=== PATIENT | male | born 1995 | race Caucasian/White ===

== ENCOUNTER 2025-05-30 01:05 | Emergency (ER) | payer SELFPAY ==
[~2025-05-30] VITALS: Ht 185.4 cm; Wt 92.7 kg
[2025-05-30 01:22] LABS: MEAN PLATELET VOLUME 8.0 FL (7.4-10.4); RED CELL DISTRIBUTION WIDTH 13.8 % (11.5-14.5)
[2025-05-30 01:42] LABS: CREATININE 1.16 MG/DL (0.60-1.10); PRO BRAIN NATRIURETIC PEPTIDE < 30 PG/ML (0-125); TOTAL CARBON DIOXIDE 23.5 MMOL/L (24-32); eCRCL 107 ML/MIN; eGFR 75 ML/MIN
--- NOTE | 2025-05-30 02:31 | RADIOLOGY REPORT ---
CHEST RADIOGRAPH Indication: CP Technique: Single frontal view of the chest was obtained COMPARISON: None FINDINGS: Lines and Tubes: None Lungs: Clear Pleura: No effusion. No pneumothorax. Cardiomediastinal contours: Unremarkable Bones: Unremarkable IMPRESSION: 1. No acute disease.
--- NOTE | 2025-05-30 02:52 | Physician Documentation ---
History of Present Illness ~ Chief Complaint: Chest Pain Stated Complaint: CHEST PAIN Time Seen by MD: 02:48 HPI Patient presents to the emergency room for evaluation of chest pain. Patient states that he noticed it when he was driving home from work. He is normally very active and runs and water skis. Pain is exacerbated with deep breaths and movements. He does not smoke, does not have first-degree relatives with heart disease and denies history of blood pressure cholesterol or diabetes. Medication Reconciliation Allergies: Coded Allergies: No Known Allergies (Unverified , 05/30/25) Review of Systems ROS All review of systems negative except as per HPI Physical Exam Vital Signs: Temperature: 97.1, Source: Temporal, Heart Rate: 68, Respiratory Rate: 12, BP: 101/65, Pulse Oximetry: 98, Weight: 92.730 Oxygen Flow Rate: 0 Physical Exam General: Patient is awake, alert, oriented x4 in no acute distress Head: Normocephalic and atraumatic. Eyes: Conjunctival normal. EOMI. PERRL. ENT: Mucous membranes moist. Neck: Supple, trachea is midline. Chest: Clear to auscultation bilaterally without rales, rhonchi, or wheezes. There is no accessory muscle use or retractions. Tenderness to palpation to precordium Cardiac: RRR without murmurs, gallops, or rubs. Extremities: Normal strength. Normal range of motion. No deformities or edema. No calf tenderness to palpation Progress Results/Orders Results/Orders Orders - ELDER JAMES MD Chest,Single View (05/30/25 01:18) Monitor (05/30/25 01:11) Saline Lock (05/30/25 01:11) Oxygen (05/30/25 01:11) Electrocardiogram (05/30/25 01:11) Hs Troponin I W Calculations (05/30/25 03:11) Hs Troponin I W Calculations (05/30/25 04:11) Completed Orders - ELDER JAMES MD Chest,Single View (05/30/25 01:18) Cbc/Diff (05/30/25 01:11) BMP (05/30/25 01:11) PBNP (05/30/25 01:11) Hs Troponin I W Calculations (05/30/25 01:11) Vital Signs 05/30/25 05/30/25 05/30/25 8/30/25 01:07 01:53 02:53 02:56 Temp 97.1 Pulse 67 68 78 Resp 16 12 16 18 B/P (MAP) 114/71 101/65 (77) 102/60 (74) Pulse Ox 100 98 99 O2 Flow Rate 0 Laboratory Tests Test 05/30/25 01:12 White Blood Count 9.0 Red Blood Count 4.70 Hemoglobin 14.8 Hematocrit 43.4 Mean Corpuscular Volume 92.2 Mean Corpuscular Hemoglobin 31.6 H Mean Corpuscular Hemoglobin Concent 34.2 Red Cell Distribution Width 13.8 Platelet Count 193 Mean Platelet Volume 8.0 Neutrophils (%) (Auto) 63.3 Lymphocytes (%) (Auto) 26.7 Monocytes (%) (Auto) 8.4 Eosinophils (%) (Auto) 1.0 Basophils (%) (Auto) 0.6 Neutrophils # (Auto) 5.7 Lymphocytes # (Auto) 2.4 Monocytes # (Auto) 0.8 Eosinophils # (Auto) 0.1 Basophils # (Auto) 0.1 CBC Comment Sodium Level 140 Potassium Level 3.8 Chloride Level 105 Carbon Dioxide Level 23.5 L Anion Gap 12 Blood Urea Nitrogen 11 Creatinine 1.16 H Estimated GFR/1.73 m2 75 BUN/Creatinine Ratio 9.5 L Glucose Level 118 H Calcium Level 8.7 Troponin I High Sensitivity 8 Pro-B-Type Natriuretic Peptide < 30 Albumin 4.0 Chemistry Comments EKG/XRAY/CT/US/VASC/MRI EKG : Additional Comment EKG interpreted by myself shows time of 0111, rate 69, sinus rhythm, normal axis, nonspecific ST-T changes Medical Decision Making Findings Patient presents to the emergency room for evaluation of chest pain as per HPI. Differentials include but are not limited to ACS, pulmonary embolism, musculoskeletal pain, aortic pathology therefore emergent labs and chest x-ray ordered. Chest x-ray reassuring as are labs. He had not feel patient requires a 2nd troponin given time of onset of eye p.m. yesterday. The fact that patient is able to move and palpate his precordium is very reassuring and I suspect musculoskeletal pain. EKG shows possibility of pericarditis however chest x-ray is reassuring and no elevation of troponins. Departure Disposition: HOME / SELF CARE / HOMELESS Impression: Primary Impression: Chest wall pain Condition: Stable Discharge Instructions: Chest Wall Pain Referrals: NO PRIMARY CARE PROVIDER (PCP) Signature Scribe Signature: No scribe Attestation: The note accurately reflects work and decisions made by me.Elder James MD 05/30/25 03:01 ELDER JAMES MD May 30, 2025 02:52
[2025-05-30 03:09] VITALS: BP 109/62; PULSE 70; RESP 16; TEMP 98.1; O2SAT 99
--- NOTE | 2025-05-30 06:14 | ELECTROCARDIOGRAPH REPORT ---
[facility] Test Date: 2025-05-30 Test Time: 01:11:38 Pat Name: LADI PENA Department: EMERGENCY ROOM Room: Gender: M Switchman: INDY : 1995 Requested By: VARGAS DALY Order Number: [id number] Reading MD: Measurements Intervals [place] Rate: 69 P: 49 NM: 168 QRS: 71 QRSD: 95 T: 41 QT: 382 QTc: 410 Interpretive Statements Sinus rhythm ST elevation suggests acute pericarditis Please click the below link to view image of tracing.
== END 2025-05-30 03:11 | disposition home or self-care (01) ==
LOC: ER 01:06
DX: R07.89 Other chest pain (principal)
CPT/HCPCS: 36415; 71045; 80048; 83880; 84484; 85025; 93005; 99285